=== PATIENT | female | born 1980 | race Caucasian/White ===

== ENCOUNTER 2018-02-10 03:55 | Inpatient (IN) | payer BC ==
[~2018-02-10 03:55] MED LIST: CITRIC ACID/SODIUM CITRATE 30 ML UNIT-DOSE CUP PO ONE; ELECTROLYTE-148 SOLN 1,000 ML IV ONE
[2018-02-10] MEDS ORDERED: AMPICILLIN SODIUM 2 GM VIAL ONE (04:48)
[2018-02-10] MEDS ORDERED: ELECTROLYTE-148 SOLN 1,000 ML IV SCH ×2 (05:00→05:30)
[2018-02-10] MEDS ORDERED: AMPICILLIN - 2 GM in SODIUM CHLORIDE 100 ML IVPB ONE (05:00)
[2018-02-10] MEDS ORDERED: OXYTOCIN 20 UNITS in 0.9% NS 20 UNIT/1,000 ML INFUS.BAG IV ONE ×2 (05:11→07:27)
[2018-02-10] MEDS ORDERED: morphine SULFATE/Preservative Free 0.5 MG/ML (1cc Syringe) ONE (05:12)
[2018-02-10] MEDS ORDERED: BUPIVACAINE 0.75% IN DEXTROSE/PF 2ML AMPULE NR ONE (05:14)
[2018-02-10] MEDS ORDERED: ELECTROLYTE-148 SOLN 500 ML IV ONE (05:20)
--- NOTE | 2018-02-10 05:20 | HP ---
Past Medical History - Admission History of Present Illness: 37 yo @ 39 0/7 wks by first trimester ultrasound, EDC 02/17/2018 complicated by: 1. 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 Prior CD x 2; first for breech, second elective Desires repeat and permanent sterilization 3. Depression - s/p psych referral No complaints Patient presents with chief complaint of spontaneous leakage of fluid. She reports movement, denies vaginal bleeding, irregular non-painful contractions History Source: Patient Limitations to Obtaining History: No Limitations - Past Medical History Cardiovascular: No: HTN Pulmonary: No: Asthma Gastrointestinal: No: GERD ...: 4 ...Para: 3 ... Weeks Gestation by Dates: 39.0 ...EDC by Dates: 02/17/18 Heme/Onc: No: Anemia - Past Surgical History Past Surgical History: Yes: Hx Myomectomy: No Hx Transabdominal Cerclage: No - Alcohol/Substance Use Hx Alcohol Use: No History of Substance Use: reports: None - Social History History of Recent Travel: No Home Medications - Allergies Allergies/Adverse Reactions: Allergies Allergy/AdvReac Type Severity Reaction Status Date / Time No Known Allergies Allergy Verified 02/10/18 04:33 - Home Medications Home Medications: Ambulatory Orders Vitamins (Sjr) - 1 tab PO DAILY 02/10/18 Family Disease History - Family Disease History Family History: Denies Review of Systems - Review of Systems Constitutional: reports: No Symptoms Cardiovascular: reports: No Symptoms Respiratory: reports: No Symptoms Gastrointestinal: reports: No Symptoms Genitourinary: reports: No Symptoms Musculoskeletal: reports: No Symptoms Neurological: reports: No Symptoms Endocrine: reports: No Symptoms Hematology/Lymphatic: reports: No Symptoms Psychiatric: reports: No Symptoms Physical Exam - Maternity Constitutional: Yes: Well Nourished, No Distress, Calm Cardiovascular: Yes: Regular Rate and Rhythm Lungs: Clear to auscultation - Abdominal Exam/OB Fundal Height: 40 Number of Fetuses: Single Presentation: Vertex Regularity: Regular Intensity: Mild Monitor Mode: External Category: I Accelerations: Non-Uniform Decelerations: None - Vaginal Exam/OB Vaginal Bleediing: No Amniotic Membrane Status: Ruptured - Physical Exam Edema: No Psychiatric: Yes: Alert, Oriented - Labs Lab Results: PNL: A positive, antibody negative; RPR NR; HBs Ag neg; HCV neg; HIV neg; Rubella Immune; Varicella Immune; Parvo Non-immune; Hg Elaine AA; Materni T21 WNL; AFP neg; CF/SMA/FX neg; GCT WNL; GBS positive Hemorrhage Risk Assessment - Risk Factors Medium Risk Factors: Yes: Prior , uterine surgery,or multiple laparotomies High Risk Factors: Yes: None Risk Score: 1 Risk Level: Medium Risk Assessment/Plan 37 yo SROM at 39 wks, prior CD for repeat and permanent sterilization 1. Admit to L&D 2. Consents reviewed and signed. Discussed risks including infection, bleeding, damage to surrounding organs such as bowel, bladder; injury to infant, tubal ligation failure, hemorrhage requiring transfusion. She expressed understanding , written consent obtained 3. GBS pos, s/p amp - will give clinda prior to CD 4. Category IFHT 5. Will proceed to OR
[2018-02-10] MEDS ORDERED: OXYTOCIN 10 UNITS/ML VIAL ONE (05:49)
[2018-02-10] MEDS ORDERED: TUBERCULIN PPD 5 TU/0.1ML SYRINGE (IN PATIENT USE ONLY) ID ONE (06:00)
[2018-02-10] MEDS ORDERED: ONDANSETRON 4 MG/2 ML VIAL IVPUSH PRN (06:12)
[2018-02-10] MEDS ORDERED: morphine SULFATE/Preservative Free 0.5 MG/ML (1cc Syringe) SPIN ONE (06:12)
[2018-02-10 06:33] VITALS: BMI 30.7
[2018-02-10] MEDS ORDERED: BENZOCAINE 28 GM HEMORRHOIDAL OINTMENT TP PRN (06:44)
[2018-02-10] MEDS ORDERED: METHYLERGONOVINE MALEATE 0.2 MG/1 ML AMP IM PRN (06:44)
[2018-02-10] MEDS ORDERED: KETOROLAC TROMETHAMINE 30 MG/1 ML VIAL ONE (06:44)
[2018-02-10] MEDS ORDERED: IBUPROFEN 600 MG TABLET (FP) PO PRN (06:44)
[2018-02-10] MEDS ORDERED: WITCH HAZEL 50% (TUCKS) 40 PAD/JAR PAD TP PRN (06:44)
[2018-02-10] MEDS ORDERED: BENZOCAINE 20% 57 GM BOTTLE TP PRN (06:44)
[2018-02-10] MEDS ORDERED: IBUPROFEN 800 MG/8 ML IJ IVPB PRN (06:44)
[2018-02-10] MEDS ORDERED: OXYTOCIN 20 UNITS in 0.9% NS 20 UNIT/1,000 ML INFUS.BAG IV SCH (06:45)
--- NOTE | 2018-02-10 06:48 | PN ---
Delivery - Delivery Section: Repeat, High Transverse EBL (cc): 500 Delivery, Single - Condition of Infant Gender: Male Weight: 6 lb 7 oz Position: Left, OT - 1 Minute Total Score: 9 5 Minutes Total Score: 9 - Feeding Plan Initial Plan: Exclusive throughout hospitalization Remarks - Remarks Remarks: Surgeon: MD Romie; Assist: CARLOS Salinas; Anesthesia: MD Ever Findings: Male , LOT position, 9,9; wt 6 lb 7 oz; 18 inches; normal tubes and ovaries bilaterally EBL: 500; IVF: 1500; UOP 200 Dictation: [id number]
--- NOTE | 2018-02-10 09:09 | OP ---
DATE OF OPERATION: 02/10/2018 ATTENDING PHYSICIAN RESPONSIBLE FOR SIGNING REPORT: Sharon López MD PREOPERATIVE DIAGNOSES: Intrauterine , 39 weeks, prior section, with spontaneous rupture of membranes; multiparous desiring permanent sterilization. POSTOPERATIVE DIAGNOSES: Intrauterine , 39 weeks, prior section, with spontaneous rupture of membranes; multiparous desiring permanent sterilization. SURGERY: Repeat delivery via Pfannenstiel skin incision with bilateral salpingectomy. SURGEON: Sharon López MD ASSIST: CARLOS Salinas ANESTHESIA: Spinal with Ani Curtis MD. URINE OUTPUT: 200. ESTIMATED BLOOD LOSS: 500. INTRAVENOUS FLUIDS: 1500. INDICATION: Patient is a 37-year-old, 4, para 3 with 2 prior C-sections , who presented with spontaneous leakage of fluid, found to be 2 cm dilated and beth. She was comfortable and desired repeat delivery and permanent sterilization. She was counseled regarding risks, benefits, alternatives, and complications of procedure including infection; bleeding; damage to surrounding organs such as bowel, bladder, ureters; hemorrhage requiring transfusion; risk of tubal ligation failure; regret; injury. She expressed understanding, was brought to the operating room. When anesthesia was found to be adequate, patient was prepped and draped in normal sterile fashion, placed in the dorsal supine position with leftward tilt. An approximately 11-cm skin incision was made with a knife and carried down to the underlying rectus fascia using Bovie electrocautery. The fascia was nicked in midline, and the fascia incision was extended laterally using the Butler scissors. The inferior portion of the fascial incision was tented up using Chelly clamps, dissected off the underlying rectus muscles using the Butler scissors. Attention was brought to the superior portion of the fascial incision where, in a similar fashion, was tented up using Chelly clamps, dissected off the underlying rectus muscles using Butler scissors. The rectus muscles were in midline sharply using the knife , and the peritoneum was entered bluntly. The vesicouterine peritoneum was identified , entered sharply, and a bladder flap was created digitally. Hysterotomy was performed, extended laterally using bandage scissors. Amniotomy was performed. Clear fluid was noted. The 's head was brought to the hysterotomy site. 's head, shoulders, and body were delivered without difficulty. Cord was clamped and cut. The cord was handed to waiting NICU staff. The placenta was extracted. The uterus was exteriorized and cleared of all clot and debris. The hysterotomy was closed using 0 Vicryl in a running layer, a second layer as an imbricated layer. Confirmation of the patient desiring permanent sterilization was obtained. Attention was brought to the right fallopian tube, was followed to its fimbriated end. The right fallopian tube was ligated using a LigaSure, and good hemostasis was noted. Attention was brought to the left fallopian tube, was followed to its fimbriated end. The fallopian tube was ligated using a LigaSure. The gutters were cleared of all clot and debris. The bilateral ovaries were noted to be normal appearing. The uterus was returned to the abdominal cavity. Good hemostasis from the hysterotomy site was noted. Copious irrigation was performed. The peritoneum was closed using 2-0 Biosyn in a running fashion. The rectus muscles were reapproximated using 2-0 Biosyn in an interrupted fashion. The fascia was closed using 0 Vicryl in a running fashion. The subcutaneous fat was closed using 0 Vicryl in a running fashion. The skin was reapproximated using 3-0 Vicryl. The patient tolerated the procedure well. Estimated blood loss was 500 mL. The patient was brought to recovery room in stable condition. SHARON LÓPEZ M.D. [id number] MTDD
[2018-02-10 09:10] LABS: ANION GAP 8 MMOL/L (8-16); BLOOD UREA NITROGEN 10 mg/dL (7-18); CALCIUM 8.1 mg/dL (8.5-10.1); CHLORIDE 109 mmol/L (98-107); CO2 22 mmol/L (21-32); CREATININE 0.6 mg/dL (0.55-1.3); GLUCOSE,RANDOM 65 mg/dL (74-106); POTASSIUM 4.2 mmol/L (3.5-5.1); SODIUM 139 mmol/L (136-145)
[2018-02-10] MEDS: PRENATAL VITAMINS W/ FOLIC ACID TABLET (FP) PO SCH (10:00)
[2018-02-10] MEDS: SIMETHICONE 80 MG TAB.CHEW (FP) PO PRN (23:47)
[2018-02-10] MEDS: ACETAMINOPHEN 325 MG TABLET (FP) PO PRN (23:47)
[2018-02-10] MEDS: IBUPROFEN 600 MG TABLET (FP) PO PRN (23:48)
[2018-02-11] MEDS ORDERED: BISACODYL 10 MG SUPP.RECT RC PRN (06:44)
[2018-02-11] MEDS: SIMETHICONE 80 MG TAB.CHEW (FP) PO PRN ×4 (06:53→19:54)
[2018-02-11] MEDS: ACETAMINOPHEN 325 MG TABLET (FP) PO PRN ×2 (06:53→10:36)
[2018-02-11] MEDS: IBUPROFEN 600 MG TABLET (FP) PO PRN ×4 (06:54→19:54)
[2018-02-11 07:21] LABS: BASO % 0.4 % (0-2.0); EOS % 0.8 % (0-4.5); HEMATOCRIT 32.8 % (32.4-45.2); HEMOGLOBIN 10.9 GM/dL (10.7-15.3); LYMPH % 24.2 % (8-40); MCH 31.4 pg (25.7-33.7); MCHC 33.2 g/dl (32.0-36.0); MEAN CELL VOLUME 94.6 fl (80-96); MEAN PLT VOLUME 10.6 fl (7.5-11.1); MONO % 4.4 % (3.8-10.2); NEUT % 70.2 % (42.8-82.8); PLATELET COUNT 147 K/MM3 (134-434); RBC 3.47 M/mm3 (3.60-5.2); RDW 13.8 % (11.6-15.6)
--- NOTE | 2018-02-11 08:39 | PN ---
Post Progress Note - Subjective Subjective: Patient without acute complaints. Reports tolerating oral intake without nausea or vomiting. Ambulating without dizziness. Denies fevers or chills. Pain well controlled with oral pain medication. without difficulty. Passing flatus. Post Day: 1 Type of Delivery: Repeat C/S Vital Signs: Vital Signs Temperature 97.8 F 02/11/18 01:53 Pulse Rate 58 L 02/11/18 01:53 Respiratory Rate 18 02/11/18 05:00 Blood Pressure 98/53 L 02/11/18 01:53 O2 Sat by Pulse Oximetry (%) 100 02/10/18 08:15 Breast Exam: Yes: Soft Uterus: Yes: Fundus Firm, Fundus below umbilicus Incision: Yes: Dressing dry and intact Abdomen/GI: Yes: Abdomen soft, Tender (mild incisional). No: Abdominal Distention Lochia: Yes: Rubra Lochia, amount: Moderate Extremities: Yes: Calves non-tender, Edema (trace) Activity: Ambulating - Labs Labs: CBC WBC 11.0 K/mm3 (4.0-10.0) H 02/11/18 06:00 RBC 3.47 M/mm3 (3.60-5.2) L 02/11/18 06:00 Hgb 10.9 GM/dL (10.7-15.3) 02/11/18 06:00 Hct 32.8 % (32.4-45.2) 02/11/18 06:00 MCV 94.6 fl (80-96) 02/11/18 06:00 MCH 31.4 pg (25.7-33.7) 02/11/18 06:00 MCHC 33.2 g/dl (32.0-36.0) 02/11/18 06:00 RDW 13.8 % (11.6-15.6) 02/11/18 06:00 Plt Count 147 K/MM3 (134-434) 02/11/18 06:00 MPV 10.6 fl (7.5-11.1) 02/11/18 06:00 Absolute Neuts (auto) 7.7 K/mm3 (1.5-8.0) 02/11/18 06:00 Neutrophils % 70.2 % (42.8-82.8) 02/11/18 06:00 Lymphocytes % 24.2 % (8-40) 02/11/18 06:00 Monocytes % 4.4 % (3.8-10.2) 02/11/18 06:00 Eosinophils % 0.8 % (0-4.5) 02/11/18 06:00 Basophils % 0.4 % (0-2.0) 02/11/18 06:00 Nucleated RBC % 0 % (0-0) 02/11/18 06:00 Assessment/Plan 37 yo POD # 1 s/p repeat CD and bilateral salpingectomy, afebrile, vital signs stable, doing well 1. Continue routine postoperative care. 2. AM CBC without signs of anemia 3. Rh positive status, no rhogam indicated. 4. Encourage ambulation and incentive spirometer use 5. Continue oral pain medication 6. Anticipate discharge home postoperative day #3 or #4
[2018-02-11] MEDS: PRENATAL VITAMINS W/ FOLIC ACID TABLET (FP) PO SCH (10:00)
--- NOTE | 2018-02-11 11:50 | PN ---
Progress Note (short form) - Note Progress Note: ANESTHESIOLOGY POST-OP CHECK 37F s/p reperat under spinal anesthesia, POD #1. No acute complaints. Denies N/V, backache, headache. Pain 0/10 and ambulating. Vital Signs Temperature 97.8 F 02/11/18 01:53 Pulse Rate 58 L 02/11/18 01:53 Respiratory Rate 18 02/11/18 05:00 Blood Pressure 98/53 L 02/11/18 01:53 O2 Sat by Pulse Oximetry (%) 100 02/10/18 08:15 Active Medications Acetaminophen (Tylenol -) 650 mg PO Q4H PRN PRN Reason: FEVER Last Admin: 02/11/18 10:36 Dose: 650 mg Benzocaine (Americaine 20% [place] -) 1 spray TP PRN PRN PRN Reason: Pain - Topical Benzocaine (Americaine Ointment -) 1 applic TP PRN PRN PRN Reason: Pain - Topical Bisacodyl (Dulcolax Suppository -) 10 mg RC PRN PRN PRN Reason: CONSTIPATION Diphenhydramine HCl (Benadryl Injection -) 25 mg IVPUSH Q4H PRN PRN Reason: Pruritis Ibuprofen (Motrin -) 600 mg PO Q4H PRN PRN Reason: PAIN LEVEL 1-5 Last Admin: 02/11/18 10:35 Dose: 600 mg Ibuprofen (Motrin -) 600 mg PO Q4H PRN PRN Reason: PAIN LEVEL 1 - 3 Ibuprofen (Caldolor Injection -) 800 mg IVPB Q8H PRN PRN Reason: PAIN LEVEL 1-5 Last Admin: 02/10/18 17:32 Dose: 800 mg Methylergonovine Maleate (Methergine Injection -) 0.2 mg IM Q4H PRN PRN Reason: Excessive Bleeding (L&D) Ondansetron HCl (Zofran Injection) 4 mg IVPUSH Q4H PRN PRN Reason: NAUSEA Oxycodone HCl (Roxicodone -) 5 mg PO Q4H PRN PRN Reason: PAIN LEVEL 4 - 6 Oxycodone HCl (Roxicodone -) 10 mg PO Q4H PRN PRN Reason: PAIN LEVEL 7 - 10 Multivit/Folic Acid/Iron ( Vitamins (Sjr) -) 1 tab PO DAILY MATTY Last Admin: 02/10/18 10:00 Dose: Not Given Senna/Docusate Sodium (Pericolace -) 2 tablet PO HS PRN PRN Reason: CONSTIPATION Simethicone (Mylicon -) 80 mg PO Q4H PRN PRN Reason: GAS Last Admin: 02/11/18 10:35 Dose: 80 mg Witch Betty/Glycerin (Tucks Pads -) 1 pad TP PRN PRN PRN Reason: Pain - Topical Gen: Awake, alert, no apparent distress No apparent anesthesia complications. Pain controlled. Continue management as per primary team.
[2018-02-11] MEDS: oxyCODONE HCL 5 MG TABLET PO PRN ×2 (14:02→19:55)
--- NOTE | 2018-02-11 18:49 | PATH ---
Surgical Pathology Report Patient Name: RADHA RAMOS [facility]. Rec. #: [id number] /Age/Gender: 1980 (Age: 37) / F Account: [id number] Location: [facility] OBS/CLINICAL NURSE OCCUPATIONAL MEDICINE Taken: 02/10/2018 Received: 02/10/2018 Reported: 02/11/2018 Physicians: Tigist Grubbs Specimen(s) Received A: PLACENTA B: RIGHT FALLOPIAN TUBE C: LEFT FALLOPIAN TUBE Clinical History G4, para3, 39.0 weak, repeat Final Diagnosis A. PLACENTA: THIRD TRIMESTER PLACENTA WITH FOCAL ACUTE CHORIOAMNIONITIS. TRIVASCULAR CORD WITH NO DIAGNOSTIC ABNORMALITIES. B. RIGHT FALLOPIAN TUBE: COMPLETE CROSS SECTION OF THE FALLOPIAN TUBE IDENTIFIED. C. LEFT FALLOPIAN TUBE: COMPLETE CROSS SECTION OF THE FALLOPIAN TUBE IDENTIFIED. Electronically Signed Sam Anders M.D. Gross Description A. The specimen is received fresh labeled "placenta" and is a 390 gram, 17 x 13 x 2 cm. placenta with attached membranes and umbilical cord. The attached membranes are glistening and translucent and insert marginally. The umbilical cord measures 17 cm. in length and averages 1 cm. in diameter. The cord inserts 3cm from the margin. No true knots or strictures are identified. Cut surface of the umbilical cord reveals 3 vessels. The surface is loza-blue with minimal fibrin deposition and appropriate caliber vessels. The maternal surface is red-brown with focal defects. Sectioning reveals red-brown, spongy parenchyma. No lesions are identified. Floriculture Teacher sections are submitted in three cassettes as follows: 1- membrane rolls and umbilical cord; 2-3- full thickness sections of placenta. B. Received fresh labelled "right fallopian tube" is a 7 cm long by 0.8 cm in diameter portion of tissue consistent with a portion of fallopian tube. The fimbriated end is identified. No focal lesions are identified. Floriculture Teacher sections submitted in two cassettes. C. Received fresh labelled "left fallopian tube" is a 5cm long by 0.8 cm in diameter portion of tissue consistent with a portion of fallopian tube. The fimbriated end is identified. No focal lesions are identified. Floriculture Teacher sections submitted in two cassettes. __ KWS/02/10/2018 sulki/02/10/2018
[2018-02-12] MEDS: SIMETHICONE 80 MG TAB.CHEW (FP) PO PRN ×4 (01:13→20:32)
[2018-02-12] MEDS: IBUPROFEN 600 MG TABLET (FP) PO PRN ×4 (01:14→20:32)
[2018-02-12] MEDS: oxyCODONE HCL 5 MG TABLET PO PRN ×4 (01:14→20:32)
--- NOTE | 2018-02-12 06:50 | PN ---
Post Progress Note - Subjective Subjective: Patient without acute complaints. Reports tolerating oral intake without nausea or vomiting. Ambulating without dizziness. Denies fevers or chills. Pain well controlled with oral pain medication. without difficulty. Passing flatus. Post Day: 2 Type of Delivery: Repeat C/S Vital Signs: Vital Signs Temperature 98.0 F 02/11/18 22:00 Pulse Rate 71 02/11/18 22:00 Respiratory Rate 18 02/11/18 22:00 Blood Pressure 111/73 02/11/18 22:00 O2 Sat by Pulse Oximetry (%) 100 02/10/18 08:15 Breast Exam: Yes: Soft Uterus: Yes: Fundus Firm, Fundus below umbilicus Incision: Yes: Dressing dry and intact Abdomen/GI: Yes: Abdomen soft, Tender (mild incisional), Passing flatus, Tolerating PO. No: Abdominal Distention Lochia: Yes: Serosa Lochia, amount: Small Extremities: Yes: Calves non-tender. No: Edema Activity: Ambulating - Labs Labs: CBC WBC 11.0 K/mm3 (4.0-10.0) H 02/11/18 06:00 RBC 3.47 M/mm3 (3.60-5.2) L 02/11/18 06:00 Hgb 10.9 GM/dL (10.7-15.3) 02/11/18 06:00 Hct 32.8 % (32.4-45.2) 02/11/18 06:00 MCV 94.6 fl (80-96) 02/11/18 06:00 MCH 31.4 pg (25.7-33.7) 02/11/18 06:00 MCHC 33.2 g/dl (32.0-36.0) 02/11/18 06:00 RDW 13.8 % (11.6-15.6) 02/11/18 06:00 Plt Count 147 K/MM3 (134-434) 02/11/18 06:00 MPV 10.6 fl (7.5-11.1) 02/11/18 06:00 Absolute Neuts (auto) 7.7 K/mm3 (1.5-8.0) 02/11/18 06:00 Neutrophils % 70.2 % (42.8-82.8) 02/11/18 06:00 Lymphocytes % 24.2 % (8-40) 02/11/18 06:00 Monocytes % 4.4 % (3.8-10.2) 02/11/18 06:00 Eosinophils % 0.8 % (0-4.5) 02/11/18 06:00 Basophils % 0.4 % (0-2.0) 02/11/18 06:00 Nucleated RBC % 0 % (0-0) 02/11/18 06:00 Assessment/Plan 37 yo POD # 2 s/p repeat CD and bilateral salpingectomy, afebrile, vital signs stable, doing well 1. Continue routine postoperative care. 2. Encourage ambulation and incentive spirometer use 3. Continue oral pain medication 4. Anticipate discharge home postoperative day #3 or #4
[2018-02-12] MEDS ORDERED: HYDROCORTISONE 1% TOPICAL CREAM 30 GM TUBE TP PRN (07:02)
[2018-02-12] MEDS: PRENATAL VITAMINS W/ FOLIC ACID TABLET (FP) PO SCH (09:23)
[2018-02-12] MEDS: ACETAMINOPHEN 325 MG TABLET (FP) PO PRN (20:31)
[2018-02-12] MEDS: SENNOSIDES/DOCUSATE COMBO (SENNA PLUS) TABLET (UD) PO PRN (20:33)
--- NOTE | 2018-02-12 21:16 | PN ---
Progress Note (short form) - Note Progress Note: Patient desires circumcision for . Reviewed risks of infection, bleeding, damage to tip of penis, unsatisfactory cosmetic result, resulting in additional surgery. All questions answered and written consent obtained. Infant cleared for circumcision by finisher denture, Dr. Zavaleta.
[2018-02-13] MEDS: ACETAMINOPHEN 325 MG TABLET (FP) PO PRN ×5 (03:18→22:55)
[2018-02-13] MEDS: SIMETHICONE 80 MG TAB.CHEW (FP) PO PRN ×5 (03:18→22:54)
[2018-02-13] MEDS: IBUPROFEN 600 MG TABLET (FP) PO PRN ×5 (03:19→22:55)
[2018-02-13] MEDS: oxyCODONE HCL 5 MG TABLET PO PRN (03:19)
[2018-02-13 06:52] LABS: BASO % 0.6 % (0-2.0); EOS % 3.3 % (0-4.5); HEMATOCRIT 32.4 % (32.4-45.2); HEMOGLOBIN 10.9 GM/dL (10.7-15.3); LYMPH % 37.1 % (8-40); MCHC 33.5 g/dl (32.0-36.0); MEAN CELL VOLUME 95.5 fl (80-96); MEAN PLT VOLUME 9.3 fl (7.5-11.1); MONO % 4.9 % (3.8-10.2); NEUT % 54.1 % (42.8-82.8); PLATELET COUNT 189 K/MM3 (134-434); RBC 3.39 M/mm3 (3.60-5.2); RDW 14.2 % (11.6-15.6); WHITE BLOOD COUNT 8.4 K/mm3 (4.0-10.0)
--- NOTE | 2018-02-13 07:33 | PN ---
Post Progress Note - Subjective Subjective: Patient without acute complaints. Reports tolerating oral intake without nausea or vomiting. Ambulating without dizziness. Denies fevers or chills. Pain well controlled with oral pain medication. without difficulty. Passing flatus. Post Day: 3 Type of Delivery: Repeat C/S Vital Signs: Vital Signs Temperature 97.9 F 02/12/18 22:00 Pulse Rate 70 02/12/18 22:00 Respiratory Rate 18 02/12/18 22:00 Blood Pressure 135/59 L 02/12/18 22:00 O2 Sat by Pulse Oximetry (%) 100 02/10/18 08:15 Breast Exam: Yes: Soft Uterus: Yes: Fundus Firm, Fundus below umbilicus Incision: Yes: Sutures intact. No: Redness, Oozing Abdomen/GI: Yes: Abdomen soft, Tender (mild incisional), Passing flatus, Tolerating PO. No: Abdominal Distention Lochia: Yes: Serosa Extremities: Yes: Calves non-tender, Edema (trace) Activity: Ambulating - Labs Labs: CBC WBC 8.4 K/mm3 (4.0-10.0) 02/13/18 05:30 RBC 3.39 M/mm3 (3.60-5.2) L 02/13/18 05:30 Hgb 10.9 GM/dL (10.7-15.3) 02/13/18 05:30 Hct 32.4 % (32.4-45.2) 02/13/18 05:30 MCV 95.5 fl (80-96) 02/13/18 05:30 MCH 32.0 pg (25.7-33.7) 02/13/18 05:30 MCHC 33.5 g/dl (32.0-36.0) 02/13/18 05:30 RDW 14.2 % (11.6-15.6) 02/13/18 05:30 Plt Count 189 K/MM3 (134-434) D 02/13/18 05:30 MPV 9.3 fl (7.5-11.1) D 02/13/18 05:30 Absolute Neuts (auto) 4.6 K/mm3 (1.5-8.0) 02/13/18 05:30 Neutrophils % 54.1 % (42.8-82.8) D 02/13/18 05:30 Lymphocytes % 37.1 % (8-40) D 02/13/18 05:30 Monocytes % 4.9 % (3.8-10.2) 02/13/18 05:30 Eosinophils % 3.3 % (0-4.5) D 02/13/18 05:30 Basophils % 0.6 % (0-2.0) 02/13/18 05:30 Nucleated RBC % 0 % (0-0) 02/13/18 05:30 Assessment/Plan 37 yo POD # 3 s/p repeat CD and bilateral salpingectomy, afebrile, vital signs stable, doing well 1. Continue routine postoperative care. 2. Encourage ambulation and incentive spirometer use 3. Continue oral pain medication 4. Anticipate discharge home postoperative day #4
--- NOTE | 2018-02-13 07:35 | DS ---
Physical Exam-PIE FILLING MIXER Vital Signs: Vital Signs Temperature 97.9 F 02/12/18 22:00 Pulse Rate 70 02/12/18 22:00 Respiratory Rate 18 02/12/18 22:00 Blood Pressure 135/59 L 02/12/18 22:00 O2 Sat by Pulse Oximetry (%) 100 02/10/18 08:15 Labs: CBC, BMP 02/13/18 05:30 02/10/18 08:21 Delivery - Delivery Section: Repeat, High Transverse Type of Anesthesia: Spinal Episiotomy/Laceration: None EBL (cc): 500 Delivery, Single - Stages of Labor Date 1st Stage Initiatied: 02/10/18 Time 1st Stage Initiated: 03:30 Date of Delivery: 02/10/18 Time of Delivery: 05:49 Time Placenta Delivered: 05:50 - Condition of Biological Photographer/Oncology Rn Present: Yes Name: Radha Martino Infant Gender: Male Weight: 6 lb 7 oz Position: Left, OT Total Hours ROM (Hrs/Mins): 2hrs 20min - 1 Minute Total Score: 9 5 Minutes Total Score: 9 - Feeding Plan Initial Plan: Exclusive throughout hospitalization Discharge Summary Reason For Visit: REPEAT Current Active Problems delivery delivered (Acute) Sterilization (Acute) Procedures: Principal: repeat delivery and bilateral salpingectomy Hospital Course: Patient was admitted for in labor for repeat delivery and bilateral salpingectomy POD # 1 patient ambulated, voiding, passing gas, tolerating oral intake and with adequate pain control. She fulfilled all criteria for discharge POD #4 Condition: Good - Instructions Diet, Activity, Other Instructions: Physical activity Resume your normal everyday activity as tolerated no heavy lifting or exercise until seen by your surgeon. You may walk unlimited ramez of and climb stairs. You may resume driving the car when you feel safe and comfortable behind the wheel. No sexual activity as instructed. Wound care If you have a bandage, leave it on, and keep dry for 48-72 hours. After that time discard the outer bandage. If they are tapes on the skin under the out of bandage leave them in place. They will peel off in the next 7 to 10 days. Do Not Peel them off. You may shower the day after surgery. If there are tapes present on the skin, you may shower over them. Diet There are no dietary restrictions. Eat healthy, high-fiber foods. Drink 6 to 8 glasses of liquid each day. This will assist in keeping your bowels are regular. Pain management You may take Tylenol or acetaminophen or Ibuprofen (for example, Motrin, Advil etc.) from my pain prescription medication is ordered should be taken as prescribed for moderate to severe pain. Call MD for any of the following: Severe pain not relieved by medication Fever of 101 or higher Excessive bleeding or drainage on dressing Inability to urinate [facility] Reference #: [id number] Referrals: Tigist Grubbs MD [Staff Physician] - Anila Matthews MD [Staff Physician] - Disposition: HOME - Home Medications Comprehensive Discharge Medication List: Ambulatory Orders Vitamins (Sjr) - 1 tab PO DAILY 02/10/18
[2018-02-13] MEDS: PRENATAL VITAMINS W/ FOLIC ACID TABLET (FP) PO SCH (09:16)
[2018-02-13] MEDS: SENNOSIDES/DOCUSATE COMBO (SENNA PLUS) TABLET (UD) PO PRN (22:54)
[2018-02-14] MEDS: IBUPROFEN 600 MG TABLET (FP) PO PRN ×2 (02:55→10:14)
[2018-02-14] MEDS: SIMETHICONE 80 MG TAB.CHEW (FP) PO PRN (02:55)
[2018-02-14] MEDS: ACETAMINOPHEN 325 MG TABLET (FP) PO PRN ×2 (02:56→10:15)
--- NOTE | 2018-02-14 07:45 | PN ---
Post Progress Note - Subjective Subjective: Patient without acute complaints. Reports tolerating oral intake without nausea or vomiting. Ambulating without dizziness. Denies fevers or chills. Pain well controlled with oral pain medication. without difficulty. Passing flatus, had BM as well. Post Day: 4 Type of Delivery: Repeat C/S Vital Signs: Vital Signs Temperature 97.9 F 02/13/18 22:00 Pulse Rate 66 02/13/18 22:00 Respiratory Rate 18 02/13/18 22:00 Blood Pressure 135/68 02/13/18 22:00 O2 Sat by Pulse Oximetry (%) 100 02/10/18 08:15 Breast Exam: Yes: Soft Uterus: Yes: Fundus Firm Incision: Yes: Sutures intact Abdomen/GI: Yes: Abdomen soft, Passing flatus, Tolerating PO Lochia: Yes: Rubra Lochia, amount: Small Extremities: Yes: Calves non-tender Perineum: Yes: Intact Activity: Ambulating - Labs Labs: CBC WBC 8.4 K/mm3 (4.0-10.0) 02/13/18 05:30 RBC 3.39 M/mm3 (3.60-5.2) L 02/13/18 05:30 Hgb 10.9 GM/dL (10.7-15.3) 02/13/18 05:30 Hct 32.4 % (32.4-45.2) 02/13/18 05:30 MCV 95.5 fl (80-96) 02/13/18 05:30 MCH 32.0 pg (25.7-33.7) 02/13/18 05:30 MCHC 33.5 g/dl (32.0-36.0) 02/13/18 05:30 RDW 14.2 % (11.6-15.6) 02/13/18 05:30 Plt Count 189 K/MM3 (134-434) D 02/13/18 05:30 MPV 9.3 fl (7.5-11.1) D 02/13/18 05:30 Absolute Neuts (auto) 4.6 K/mm3 (1.5-8.0) 02/13/18 05:30 Neutrophils % 54.1 % (42.8-82.8) D 02/13/18 05:30 Lymphocytes % 37.1 % (8-40) D 02/13/18 05:30 Monocytes % 4.9 % (3.8-10.2) 02/13/18 05:30 Eosinophils % 3.3 % (0-4.5) D 02/13/18 05:30 Basophils % 0.6 % (0-2.0) 02/13/18 05:30 Nucleated RBC % 0 % (0-0) 02/13/18 05:30 Assessment/Plan 37yo P3 POD # 4 s/p c/section and BTL 1. Doing well 2. VSS, Afebrile, no evidance of acute blood loss 3. Rh positive status, no rhogam indicated. 4. Encourage ambulation 5. Continue oral pain medication 6. Discharge home today 7. Instructed on Pelvic rest for 6weeks 8. Return to office in 1 week
[2018-02-14] MEDS: PRENATAL VITAMINS W/ FOLIC ACID TABLET (FP) PO SCH (10:16)
[2018-02-14 11:53] VITALS: PULSE 57; TEMP 98.8
[2018-02-14 11:54] VITALS: BP 137/73
== END 2018-02-14 11:50 | disposition home or self-care (01) | DRG 766 ==
LOC: JLDR 03:55 → J3W 09:19
PROVIDERS: ADMIT Obstetrics & Gynecology; ATTEND Obstetrics & Gynecology
PROC: 10D00Z1 Extraction of Products of Conception, Low, Open Approach (ICD-10-PCS; principal; 2018-02-10)
PROC: 0UL70ZZ Occlusion of Bilateral Fallopian Tubes, Open Approach (ICD-10-PCS; 2018-02-10)
DX: O34.211 Maternal care for low transverse scar from previous cesarean delivery (principal); O99.344 Other mental disorders complicating childbirth; F32.9 Major depressive disorder, single episode, unspecified; O99.824 Streptococcus B carrier state complicating childbirth; Z3A.39 39 weeks gestation of pregnancy; Z37.0 Single live birth
CPT/HCPCS: 36415; 80048; 85025; 86593; 88302-TC; 88307-TC